=== PATIENT | female | born 1975 | race African-American/Black ===

== ENCOUNTER 2017-07-26 11:19 | Emergency (ER) | payer OTHER, SELFPAY ==
--- NOTE | 2017-07-26 12:24 | RAD ---
RIGHT ANKLE THREE VIEWS: History: Trauma. Right ankle pain. FINDINGS: AP, lateral, and oblique views obtained and demonstrate small avulsion fracture involving the inferio r most aspect of the fibula. Osseous fragment is medially and distally displaced. There is extensive associated lateral right ankle soft tissue swelling. IMPRESSION: Small avulsion fracture distal right fibula. POS: [facility]
[2017-07-26] MEDS ORDERED: Ketorolac Tromethamine 30 MG/ML VIAL ONE (12:58)
[2017-07-26] MEDS ORDERED: HYDROcodone/Acetaminophen 5/325 mg Tablet ONE (12:58)
== END 2017-07-26 13:32 | disposition home or self-care (01) ==
LOC: ERS 11:19
DX: S82.831A Other fracture of upper and lower end of right fibula, initial encounter for closed fracture (principal); G89.29 Other chronic pain; I10 Essential (primary) hypertension; F41.9 Anxiety disorder, unspecified; F32.9 Major depressive disorder, single episode, unspecified; F17.210 Nicotine dependence, cigarettes, uncomplicated; Z79.899 Other long term (current) drug therapy; X50.1XXA Overexertion from prolonged static or awkward postures, initial encounter
CPT/HCPCS: 29515; 96372; J1885

== ENCOUNTER 2017-11-30 14:35 | Outpatient (CLI) | payer OTHER | END 2017-11-30 14:36 | disposition home or self-care (01) | LOC: BICRAD 14:35 | PROVIDERS: ATTEND Internal Medicine | DX: Z02.71 Encounter for disability determination (principal); M46.96 Unspecified inflammatory spondylopathy, lumbar region; M46.92 Unspecified inflammatory spondylopathy, cervical region; M77.31 Calcaneal spur, right foot | CPT/HCPCS: 72040; 72100 ==

== ENCOUNTER 2020-06-04 00:08 | Emergency (ER) | payer SELFPAY | END 2020-06-04 01:49 | disposition home or self-care (01) | LOC: ERS 00:08 | DX: S60.441A External constriction of left index finger, initial encounter (principal); W49.04XA Ring or other jewelry causing external constriction, initial encounter | CPT/HCPCS: 99283 ==